=== PATIENT | male | born 2000 | race Caucasian/White ===

== ENCOUNTER 2021-12-03 09:46 | Outpatient (CLI) | payer OTHER, SELFPAY ==
--- NOTE | ~2021-12-03 | XR_ITS ---
EXAMINATION: XR knee LT min 4V DATE: 12/03/2021 10:49 INDICATION: Left knee pain post fall TECHNIQUE: Anteroposterior, 2 oblique and crosstable lateral views of the left knee were obtained COMPARISON: None. FINDINGS: Posterior impacted fracture involving essentially the entire surface area of the lateral tibial plate au resulting in approximately 15 degree posterior sloping of the articular surface of the lateral tib ial plateau relative to the medial tibial plateau. No other fractures identified. Joint spaces in the medial and patellofemoral compartments appear normal on nonweightbearing imaging. No definitive left knee joint effusion. IMPRESSION: 1. Lateral tibial plateau fracture with posterior impaction. Reviewed, dictated and finalized at location B.
== END 2021-12-03 09:47 ==
PROVIDERS: PCP Emergency Medicine; Visit Provider Emergency Medicine
DX: M25.562 Pain in left knee (principal); S82.142A Displaced bicondylar fracture of left tibia, initial encounter for closed fracture
CPT/HCPCS: 73564

== ENCOUNTER 2021-12-03 15:10 | Emergency (ER) | payer OTHER, SELFPAY ==
[2021-12-03 15:13] VITALS: BP 141/75; RESP 14; TEMP 36.7; O2SAT 100
--- NOTE | 2021-12-03 15:34 | ED.LOWEXIN ---
HPI - Extremity Injury (Lower) General Chief Complaint: Extremity Injury, Lower Stated Complaint: leg fx Time Seen by Provider: 12/03/21 15:20 Source: patient Mode of arrival: ambulatory Limitations: no limitations History of Present Illness HPI Narrative: 21-year-old male presents today with complaints of pain to the left knee posteriorly for about 2 days. Patient was sent here by his primary physician's due to x-ray showing Lateral tibial plateau fracture with posterior impaction. Patient arrived with knee immobilizer on. Patient states pain mostly posterior and with weightbearing. Patient states pain about a 4 out of a 10 while at rest. Related Data Allergies Allergy/AdvReac Type Severity Reaction Status Date / Time No Known Allergies Allergy Unknown Unverified 12/18/13 18:33 strawberry Allergy Unknown RASH Unverified 12/18/13 18:33 Review of Systems Review of Systems: CONSTITUTIONAL: Denies fever, chills, or sweats. EYES: Denies visual changes, redness, or discharge. ENT: Denies rhinorrhea, congestion, sore throat, or otalgia. CARDIOVASCULAR: Denies chest pain, palpitations, or edema. RESPIRATORY: Denies cough or dyspnea. GASTROINTESTINAL: Denies abdominal pain, nausea, vomiting, or diarrhea. GENITOURINARY: Denies dysuria or hematuria. SKIN: Denies rash or itching. MUSCULOSKELETAL: Left knee pain. Denies back pain, joint pain, or myalgia. NEUROLOGIC: Denies headache, numbness, dizziness, or weakness. PSYCHIATRIC: Denies anxiety or depression. Exam Narrative: GENERAL: Well-appearing, well-nourished, and in no acute distress. HEAD: Normocephalic, atraumatic. EYES: PERRLA and EOMI. ENT: Nares clear, no rhinorrhea or epistaxis. Mucous membranes moist. Oropharynx without tonsillar hypertrophy exudate or other lesions. Bilateral TMs pearly wilson nonbulging NECK: Supple. No adenopathy or masses. No carotid bruits or JVD CHEST: Clear to auscultation. No respiratory distress. No wheezes rales or rhonchi HEART: Regular rate and rhythm. No murmur heard. Normal peripheral pulses. ABDOMEN: Soft, nontender, nondistended, normal active bowel sounds. EXTREMITIES: Swelling to left knee medially. Tenderness with palpation posteriorly. No ecchymosis noted. ROM limited by pain. SKIN: Warm, dry, no rash. NEURO: No focal deficits. Alert and oriented x3. PSYCH: Normal mood and affect. Swelling to left knee Course Consultations Consultation #1: Dr. Torres consulted. Reviewed XR. Recommends knee immobilizer and follow up with him on Tuesday. Vital Signs Vital signs: Vital Signs Temperature 36.7 C 12/03/21 15:13 Respiratory Rate 14 12/03/21 15:13 Blood Pressure 141/75 H 12/03/21 15:13 Pulse Oximetry 100 12/03/21 15:13 Oxygen Delivery Room Air 12/03/21 15:13 Temperature 36.7 C 12/03/21 15:13 Respiratory Rate 14 12/03/21 15:13 Blood Pressure 141/75 H 12/03/21 15:13 Pulse Oximetry 100 12/03/21 15:13 Oxygen Delivery Room Air 12/03/21 15:13 MDM - Extremity Injury (Lower) MDM Narrative Medical decision making narrative: 21-year-old male HPI as noted. X-ray done previously showing lateral tibial plateau fracture with posterior impaction. Ortho consulted instructed to place patient in knee immobilizer and have them follow-up with his Ortho on Tuesday. Differential Diagnosis Differential diagnosis: Likely acute internal derangement of knee and other (tibia fracture, knee sprain) Medical Records Attestation: I reviewed the patient's medical records. Imaging Data Attestation: I personally reviewed and interpreted this imaging study as follows: Radiologist's impression: [facility] [address] [place] [address] XRay Report Signed Patient: Alonso Duong : 2000 MR#: [id number] Age/Sex: 21 / M Acct:[id number] Loc: [facility]? ? ADM Date: 12/03/21Attending Dr: Markus Chawla Ordering Physician: Denton, Markus Mann MD Date of
[2021-12-03] MEDS: HYDROcodone/acetaminophen (*CRX) 5-325 MG TABLET 1 TAB PO (15:59)
== END 2021-12-03 17:05 | disposition home or self-care (01) ==
PROVIDERS: Emergency Provider Nurse Practitioner Family; PCP Emergency Medicine
DX: S82.142A Displaced bicondylar fracture of left tibia, initial encounter for closed fracture (principal); X58.XXXA Exposure to other specified factors, initial encounter
CPT/HCPCS: 99284; A9270

== ENCOUNTER 2022-11-21 14:49 | Emergency (ER) | payer OTHER, SELFPAY ==
--- NOTE | ~2022-11-21 | XR_ITS ---
EXAM: XR finger 3rd RT min 2V DATE: 11/21/2022 15:19 HISTORY: FINGER VS COUNTERTOP . COMPARISON: None available. FINDINGS: Normal mineralization. No fracture or dislocation. No lytic or blastic lesion. Joint space s are maintained. No erosion or periosteal change. Soft tissues within normal limits. IMPRESSION: No acute osseous finding in the right third finger. Reviewed, dictated and finalized at location K.
[2022-11-21 15:02] VITALS: BP 136/83; PULSE 100; RESP 16; TEMP 36.7; O2SAT 97
--- NOTE | 2022-11-21 15:52 | ED.UPPEXIN ---
HPI - Extremity Injury (Upper) General Chief Complaint: Extremity Injury, Upper Stated Complaint: right 3rd digit injury Time Seen by Provider: 11/21/22 15:12 Source: patient Mode of arrival: ambulatory Limitations: no limitations History of Present Illness HPI narrative: Patient is a 22-year-old male who presents ED with report of a right third finger injury. Patient reports he tripped over his cat today and jammed his right third finger against the edge of a countertop. He states that the end of his finger will not straighten out. He denies any significant pain throughout his finger. Denies numbness or tingling. Denies any other injuries. He has been wearing a splint on his finger since the injury. Related Data Home Medications Medication Instructions Recorded Confirmed dextroamphetamine-amphetamine 20 20 mg PO DAILY PRN 05/26/22 05/26/22 mg tablet (Adderall) Allergies Allergy/AdvReac Type Severity Reaction Status Date / Time No Known Allergies Allergy Unknown Verified 05/26/22 15:17 strawberry Allergy Unknown RASH Verified 05/26/22 15:17 Review of Systems Review of Systems: CONSTITUTIONAL: Denies fever, chills, or sweats. MUSCULOSKELETAL: See HPI. NEUROLOGIC: Denies tingling, numbness, or weakness. All systems reviewed & are unremarkable except as noted in HPI and below PMFSH Past Medical History Medical History ADD (attention deficit disorder) without hyperactivity Surgical History Surgical History S/P ORIF (open reduction internal fixation) fracture (~2021) Social History Social History Smoking status: Never smoker Alcohol intake: current Substance use: current Substance use type: marijuana Lack of Transportation: No Lack of Food: Often True Current Housing: I Have Housing Concerned About Future Housing: YES Difficulty Paying Gas/Electric Bills: YES Difficulty Paying for Meds: YES Currently Unemployed: No Education: High School Diploma/GED Difficulty w/ Childcare or Family Care: No Living arrangements: with roommate(s) Occupation/Education: occupation Additional occupation/education comments: Chief Accountant Gender identity (if verbalized by the patient): Male Exam Narrative: GENERAL: Well appearing, well-nourished, non-toxic, in no acute distress. HEAD: Normocephalic, atraumatic. NECK: Supple. No adenopathy, no masses. RESPIRATORY: Airway patent, respirations nonlabored. CARDIOVASCULAR: Regular rate and rhythm without murmurs, rubs, or gallops. Radial pulses 2+ and equal bilaterally. MUSCULOSKELETAL: No swelling or tenderness throughout right third digit or joints. Unable to actively extend digit at DIP joint. Finger held in partial flexion at DIP joint. Sensation intact. SKIN: Warm, dry, normal color. No rashes. NEURO: A&O X3. Speech clear. Cranial nerves II-XII grossly intact. Steady gait. No ataxic movements. PSYCHIATRIC: Appropriate mood and affect. Normal interaction. Course Vital Signs Vital signs: Vital Signs Temperature 98.1 F 11/21/22 15:02 Pulse Rate 100 11/21/22 15:02 Respiratory Rate 16 11/21/22 15:02 Blood Pressure 136/83 11/21/22 15:02 Pulse Oximetry 97 11/21/22 15:02 Temperature 98.1 F 11/21/22 15:02 Pulse Rate 100 11/21/22 15:02 Respiratory Rate 16 11/21/22 15:02 Blood Pressure 136/83 11/21/22 15:02 Pulse Oximetry 97 11/21/22 15:02 MDM - Extremity Injury (Upper) MDM Narrative Medical decision making narrative: Patient presented to ED after jamming his finger against the edge of a countertop. X-ray without any signs of osseous abnormality to finger. Exam consistent with mallet finger. Patient was wearing metal finger splint upon arrival to ED. I advised patient to wear splint at all times and avoid allowi
== END 2022-11-21 16:29 | disposition home or self-care (01) ==
PROVIDERS: Emergency Provider Physician Assistant; PCP Family Medicine
DX: M20.011 Mallet finger of right finger(s) (principal); F98.8 Other specified behavioral and emotional disorders with onset usually occurring in childhood and adolescence; W01.0XXA Fall on same level from slipping, tripping and stumbling without subsequent striking against object, initial encounter
CPT/HCPCS: 29130; 73140; 99283